=== PATIENT | male | born 1935 | race Caucasian/White ===

== ENCOUNTER 2021-11-10 17:30 | Inpatient (IN) | payer MEDICARE, SELFPAY ==
[2021-11-10 17:42] VITALS: BP 107/75; PULSE 79; RESP 26; TEMP 36.4; O2SAT 90; BMI 24.7
[2021-11-10 18:00] LABS: Bedside Glucose 311 mg/dL (70-110)
--- NOTE | 2021-11-10 19:04 | HP.PCM_ITS ---
HPI - General General Date of Admission: 11/10/21 HPI Narrative MOLINA CHAVEZ, is a 86 Male who presents with followin10/13/2021 +covid19, unvaccinated, no monoclonal antibodies. 10/30/2021 Progressive shortness of breath, weakness, lethargy, sleepy. 10/30/2021 Admit to [facility]. CTA chest negative pulmonary embolism, showed multifocal pneumonia. Duoneb Q6h, Oxygen 7 liters per nasal cannula for acute respiratory failure with hypoxia. Lovenox 40mg Q24H for DVT prophylaxis. Zosyn/Vancomycin IV for sepsis, pneumonia. Swallowing evaluation, concern for aspiration. 11/09/2021 Feeling okay, no shortness of breath, no nausea/vomiting. Famotidine 20mg bid for gastric ulcer prophylaxis. Iron 325mg bid for iron deficiency anemia. Medrol 40mg iv q6. Lantus, Lispro for steroid induced diabetes mellitus. Haldol, Xanax for agitation, . 11/09/2021 Chest X-ray showed bibasilar infiltrates or atelectasis, small left pleural effusion. Cardiology recommended no further workup for bradycardia. Wean oxygen as tolerated. 11/10/2021 Admit to TCU with debility, here for rehabilitation, strengthening, prior to discharge home with family. Prognosis guarded. [facility] Medical History (Updated 11/10/21 @ 19:[address] Milton Weiner MD) Acute respiratory failure with hypoxia Alzheimer disease Bradycardia COVID-19 Debility Diabetes mellitus Gastroesophageal reflux disease Hypertension Iron deficiency anemia Pneumonia Home Medications acetaminophen 650 mg PO Q4H PRN 11/10/21 [History Last Taken Unknown] alprazolam 0.25 mg PO Q6H PRN PRN 11/10/21 [History Last Taken Unknown] cholecalciferol (vitamin D3) [Vitamin D3] 50 mcg PO DAILY 11/10/21 [History Last Taken Unknown] enoxaparin 40 mg SUBCUT DAILY 11/10/21 [History Last Taken Unknown] famotidine 20 mg PO BID 11/10/21 [History Last Taken Unknown] ferrous sulfate 325 mg PO BID 11/10/21 [History Last Taken Unknown] insulin glargine 20 unit SUBCUT DAILY 11/10/21 [History Last Taken Unknown] insulin lispro See Protocol SUBCUT TID 11/10/21 [History Last Taken Unknown] ipratropium-albuterol 3 ml INHALATION Q2H PRN 11/10/21 [History Last Taken Unknown] lisinopril 10 mg PO DAILY 11/10/21 [History Last Taken Unknown] nystatin 5 ml PO Q6H 11/10/21 [History Last Taken Unknown] prednisone See Taper PO DAILY 11/10/21 [History Last Taken Unknown] urea [Urea 40] 1 applic TOPICAL TID 11/10/21 [History Last Taken Unknown] zinc sulfate-vitamin C [Vitamin C Plus Zinc] 1 tab PO DAILY 11/10/21 [History Last Taken Unknown] Allergy/AdvReac Type Severity Reaction Status Date / Time ciprofloxacin Allergy Hives Verified 11/10/21 18:05 Social History (Updated 11/10/21 @ 19:[address] Milton Weiner MD) household members: family housing: house Smoking Status: Never smoker alcohol intake: never substance use type: does not use ROS Constitutional Constitutional: Denies chills, fever(s) or weight gain ENT HEENT: Denies headache(s), nasal congestion or nasal discharge Cardiovascular Cardiovascular: Denies chest pain or palpitations Respiratory/Chest Respiratory/Chest: Denies cough, excessive phlegm production or shortness of breath with exertion Gastrointestinal Gastrointestinal: Denies abdominal pain, nausea or vomiting Genitourinary Genitourinary: Denies dysuria Musculoskeletal Musculoskeletal: Denies joint pain or joint swelling Integumentary Integumentary: Denies rash or wounds Neurologic Neurologic: Denies focal weakness, numbness or tingling Psychiatric Psychiatric: Denies anxiety, auditory hallucinations, depression, homicidal ideation or suicidal ideation Vital Signs Vital Signs Vital Signs: 11/10/21 17:42 Temperature 97.5 F L Temperature Source Temporal Pulse Rate 79 Respiratory Rate 26 H Blood Pressure 107/75 Blood Pressure Mean 85 Blood Pressure Source Monitor Blood Pressure Position Semi-Fowlers Blood Pressure Location Right Arm Pulse Ox 90 Oxygen Delivery Method Non-Rebreather Oxygen Flow Rate (L/min) 15 Weight Weight: 82.781 kg Body Mass Index (BMI) 24.7 Physical Exam Const alert and oriented x3 General Appearance: cooperative HEENT normocephalic Eyes PERRL and EOMs intact bilaterally Neck supple, no JVD and no carotid bruits Resp normal respiratory effort and normal air movement Auscultation: wheezes and diminished lung sounds Cardio regular rate and regular rhythm GI normal to inspection, nondistended, normoactive bowel sounds, non-tender and non-distended Extremity normal capillary refill General Extremity: Negative for edema Skin no rashes or lesions noted General Skin Exam: no breakdown Psych affect normal Appearance: appropriate Results Lab / Micro Data Labs: Laboratory Results - last 24 hr 11/10/21 17:53: POC Glucose 311 H Assessment & Plan Assessment/Plan (1) Debility: (2) COVID-19: (3) Acute respiratory failure with hypoxia: (4) Pneumonia: (5) Bradycardia: (6) Gastroesophageal reflux disease: (7) Iron deficiency anemia: (8) Diabetes mellitus: (9) Hypertension: (10) Alzheimer disease: PLAN: 86 year old male with below past medical history hospitalized for acute respiratory failure with hypoxia secondary to covid19 pneumonia, complic ated by dysphagia, aspiration, bradycardia, admitted to TCU with debility, here for rehabilitation, strengthening, prior to discharge home with family. * Debility - PT/OT. * Cognition - ST. * Pain - Tylenol 1000mg q6h prn pain (1-10). * Bowel - Miralax 17gm daily, Senna/colace 1 tablet bid, Dulcolax 10mg daily prn. * Adult immunization - Administer prevnar 13, pneumovax 23, fluzone, covid19 as appropriate. * DVT prophylaxis - Lovenox 40mg sc daily. * Anxiety - Xanax 0.25mg q6h prn, stable chronic truck terminal manager use, GDR not recommended. * GERD - Famotidine 20mg bid. * Iron deficiency anemia - Iron 325mg bid. * Diabetes Mellitus II - Lantus 20 units daily, monitor blood sugar. * Shortness of breath - Duoneb 3ml Q2H prn, Prednisone taper, wean oxygen as tolerated. * Hypertension - Lisinopril 10mg daily. * Thrush - Nystatin 500,000 q6h thru 11/13/2021. * Zinc deficiency - Zinc 50mg daily.
[2021-11-10 20:54] VITALS: PULSE 91; RESP 24; O2SAT 91
[2021-11-10 21:40] VITALS: PULSE 97; RESP 36
[2021-11-10] MEDS: Ipratropium/Albuterol Sulfate 3 ML AMPUL.NEB INHALATION (21:40)
[2021-11-10 22:35] LABS: Allen Test Positive; Base Excess -2 mmol/L (-2 to +2); Bicarbonate 21.3 mmol/L (22-26); Blood Gas Specimen Type ART; O2 Delivery Device NRB; PO2 48 mmHG (75-100); SITE L Radial; SO2 87 % (95-99); Total Carbon Dioxide 22 mmol/L; pCO2 29.1 mmHg (35-45); pH 7.47 (7.35-7.45)
[2021-11-10 22:40] LABS: Bedside Glucose 229 mg/dL (70-110)
--- NOTE | 2021-11-10 23:13 | NURSING ---
Pt resp status diminishing. Called resp, placed on non rebreather. Unable to get pulse ox reading. Contacted Dr. Weiner. Stated to talk with family and see if they wanted comfort care and hospice or to send to ER. Binh called back and stated that family discussed it and wanted him to go to ER to see if they could give further treatment. Pt taken to ER at approx 11pm. Call make to binh to inform her that he had been taken down. Stated she was not coming in, but would tall them later for update.
--- NOTE | 2021-11-11 10:55 | PCM.DC.SUM ---
Providers Date of Admission: 11/10/21 Reason For Visit: ACUTE RESPIRATORY FAILURE Diagnosis Discharge Diagnosis (1) Debility: Status: Acute Code(s): R53.81 - Other malaise (2) COVID-19: Status: Acute Code(s): U07.1 - COVID-19 (3) Acute respiratory failure with hypoxia: Status: Acute Code(s): J96.01 - Acute respiratory failure with hypoxia (4) Pneumonia: Status: Acute Code(s): J18.9 - Pneumonia, unspecified organism (5) Bradycardia: Status: Acute Code(s): R00.1 - Bradycardia, unspecified (6) Gastroesophageal reflux disease: Status: Acute Code(s): K21.9 - Gastro-esophageal reflux disease without esophagitis (7) Iron deficiency anemia: Status: Acute Code(s): D50.9 - Iron deficiency anemia, unspecified (8) Diabetes mellitus: Status: Acute Code(s): E11.9 - Type 2 diabetes mellitus without complications (9) Hypertension: Status: Chronic Code(s): I10 - Essential (primary) hypertension (10) Alzheimer disease: Status: Acute Code(s): G30.9 - Alzheimer's disease, unspecified; F02.80 - Dementia in other diseases classified elsewhere without behavioral disturbance Medications at Discharge Home Medications acetaminophen 650 mg PO Q4H PRN 11/10/21 alprazolam 0.25 mg PO Q6H PRN PRN 11/10/21 cholecalciferol (vitamin D3) [Vitamin D3] 50 mcg PO DAILY 11/10/21 enoxaparin 40 mg SUBCUT DAILY 11/10/21 famotidine 20 mg PO BID 11/10/21 ferrous sulfate 325 mg PO BID 11/10/21 insulin glargine 20 unit SUBCUT DAILY 11/10/21 insulin lispro See Protocol SUBCUT TID 11/10/21 ipratropium-albuterol 3 ml INHALATION Q2H PRN 11/10/21 lisinopril 10 mg PO DAILY 11/10/21 nystatin 5 ml PO Q6H 11/10/21 prednisone See Taper PO DAILY 11/10/21 urea [Urea 40] 1 applic TOPICAL TID 11/10/21 zinc sulfate-vitamin C [Vitamin C Plus Zinc] 1 tab PO DAILY 11/10/21 Hospital Course Operations None Procedures None Summary of Care Provided Minutes Spent on Discharge: 30 Hospital Course: 86 year old male with below past medical history hospitalized for acute respiratory failure with hypoxia secondary to covid19 pneumonia, complicated by dysphagia, aspiration, bradycardia, admitted to TCU with debility, here for rehabilitation, strengthening, prior to discharge home with family. Resident arrived with nonbreather, pulsox 87% on ABG. 11/10/2021 Respiratory status worsened, family given options of hospice or transfer to ER, family chose ER. 11/10/2021 Discharge to [facility] ER for evaluation of acute respiratory failure with hypoxia secondary to covid19 in unvaccinated 86 year old with multiple comorbidities. Physical Exam Const alert and oriented x3 General Appearance: cooperative HEENT normocephalic Eyes PERRL and EOMs intact bilaterally Neck supple, no JVD and no carotid bruits Resp normal respiratory effort, normal air movement and clear to auscultation bilaterally Cardio regular rate and regular rhythm GI normal to inspection, nondistended, normoactive bowel sounds, non-tender and non-distended Extremity normal capillary refill General Extremity: Negative for edema Skin no rashes or lesions noted General Skin Exam: no breakdown Psych affect normal Appearance: appropriate Weight / BMI Weight Weight: 82.781 kg Body Mass Index (BMI) 24.7 ABG / Lab / Microbiology Data Laboratory: Laboratory Results - last 24 hr 11/10/21 17:53: POC Glucose 311 H 11/10/21 21:22: POC Glucose 229 H ABG: ABG 11/10/21 22:31 Specimen Type ART Sample Site L Radial pH 7.47 H Bicarbonate Actual 21.3 L Total CO2 22 Base Excess -2 O2 Saturation 87 L ABG pCO2 29.1 L ABG pO2 48 L Boyd Test Positive O2 Delivery Device NRB Liter Flow 15.0 D/C Instructions Discharge Diet: No restrictions Discharge Activity: Return to Normal Activity Weight Bearing Status: Weight bearing as tolerated Call your doctor if you observe: Fever of 101 or Higher, Inability to urinate, Inability to have a bowel movement, Shortness of breath, Dizziness, Fainting spells, Swelling in the ankles, Chest pain and Uncontrolled pain Additional Instructions: 11/10/2021 Discharge to [facility] ER for evaluation of acute respiratory failure with hypoxia secondary to covid19 in unvaccinated 86 year old with multiple comorbidities Please Follow Up With: Dr. Shankar Blair, PCP Meaningful Use Info Meaningful Use Diagnoses (Choose all that apply): None applicable Discharge Plan Admission Admit Date/Time: 11/10/21 17:30 Primary Reason for Your Visit: Debility. Attending Provider: Milton Weiner Chi Instructions Additional Instructions / Restrictions: 11/10/2021 Discharge to [facility] ER for evaluation of acute respiratory failure with hypoxia secondary to covid19 in unvaccinated 86 year old with multiple comorbidities Discharge Orders/Prescriptions Prescriptions: No Action famotidine 20 mg Tablet 20 mg PO BID RF: 0 ferrous sulfate 325 mg (65 mg iron) Tablet 325 mg PO BID RF: 0 enoxaparin 40 mg/0.4 mL Syringe 40 mg SUBCUT DAILY RF: 0 insulin lispro 100 unit/mL Insulin Pen See Protocol unit SUBCUT TID RF: 0 insulin glargine 100 unit/mL (3 mL) Insulin Pen 20 unit SUBCUT DAILY RF: 0 nystatin 100,000 unit/mL Suspension 5 ml PO Q6H RF: 0 acetaminophen 325 mg Tablet 650 mg PO Q4H PRN (Reason: Pain (Scale Score 1-3)) RF: 0 prednisone 10 mg Tablet See Taper mg PO DAILY RF: 0 ipratropium-albuterol 0.5 mg-3 mg(2.5 mg base)/3 mL Solution For Nebulization 3 ml INHALATION Q2H PRN (Reason: SOB) RF: 0 Vitamin C Plus Zinc 200-100 mg Tablet 1 tab PO DAILY RF: 0 alprazolam 0.25 mg Tablet 0.25 mg PO Q6H PRN PRN (Reason: Anxiety) RF: 0 lisinopril 10 mg Tablet 10 mg PO DAILY RF: 0 urea [Urea 40] 40 % Lotion 1 applic TOPICAL TID RF: 0 cholecalciferol (vitamin D3) [Vitamin D3] 50 mcg (2,000 unit) Tablet 50 mcg PO DAILY RF: 0 Disposition Disposition (needs filled in before D/C Order can be placed): Acute Care Hospital [facility]
== END 2021-11-10 23:00 | disposition short-term general hospital (02) | DRG 189 ==
PROVIDERS: Admitting Provider Family Medicine Geriatric Medicine; Visit Provider Family Medicine Geriatric Medicine
DX: J96.01 Acute respiratory failure with hypoxia (principal); R13.10 Dysphagia, unspecified; K21.9 Gastro-esophageal reflux disease without esophagitis; F02.80 Dementia in other diseases classified elsewhere, unspecified severity, without behavioral disturbance, psychotic disturbance, mood disturbance, and anxiety; G30.9 Alzheimer's disease, unspecified; I10 Essential (primary) hypertension; E11.9 Type 2 diabetes mellitus without complications; D50.9 Iron deficiency anemia, unspecified; U09.9 Post COVID-19 condition, unspecified; F41.9 Anxiety disorder, unspecified; B37.9 Candidiasis, unspecified; Z87.01 Personal history of pneumonia (recurrent); Z28.3 Underimmunization status
CPT/HCPCS: 36600; 82803; 82962; 94640

== ENCOUNTER 2021-11-10 23:04 | Emergency (ER) | payer MEDICARE, SELFPAY ==
--- NOTE | 2021-11-10 00:30 | RAD_ITS ---
EXAM: XR CHEST, 1 VIEW CLINICAL INDICATION: COVID 19 TECHNIQUE: Frontal view of the chest. This report was created using [employer]ner[employer] report generation technology. COMPARISON: None. FINDINGS: LUNGS AND PLEURAL SPACES: Heterogeneous airspace opacities involving the right mid to lower lung zones. Linear opacities at the left lower lung. Evidence of emphysema. No pneumothorax. No effusion. HEART: No cardiomegaly. MEDIASTINUM: Central airways and mediastinal contour are unremarkable. No hilar enlargement. Trachea is unremarkable. BONES/JOINTS: Degenerative changes of the spine and supraclavicular joints. SOFT TISSUES: Unremarkable. VASCULATURE: Atherosclerotic calcifications of the mildly tortuous thoracic aorta. RAD/Chest 1 View (Portable) IMPRESSION: Right-sided pneumonia suspected involving the right mid to lower lower lung zones. Electronically Signed: Livan Sanches MD at 1:12 EST Tel , Service support ,
[2021-11-10 23:05] VITALS: BP 108/66; BP 117/55; PULSE 76; PULSE 77; RESP 26; RESP 30; TEMP 36.5; O2SAT 85; O2SAT 96; BMI 26.8
[2021-11-10 23:17] VITALS: O2SAT 97
--- NOTE | 2021-11-10 23:30 | EKG12_ITS ---
Test Reason : DYSRHYTHMIA Blood Pressure : / mmHG Vent. Rate : 076 BPM Atrial Rate : 076 BPM P-R Int : 208 ms QRS Dur : 114 ms QT Int : 420 ms P-R-T Axes : 000 015 172 degrees QTc Int : 472 ms Normal sinus rhythm Inferior infarct , age undetermined ST & T wave abnormality, consider lateral ischemia Abnormal ECG Confirmed by OLINDA ALTMAN, TRA ([id number]), production editor GAYE AVELAR ([id number]) on 11/15/2021 9:35:08 AM Referred By: Confirmed By:TRA PRAKASH MD
--- NOTE | 2021-11-10 23:33 | EDS_ITS ---
HPI History of Present Illness Chief Complaint: Shortness of Breath Informant: patient and SNF Narrative Narrative: 86-year-old male from [facility] was admitted at [facility] for COVID-19 was transferred to [facility] TCU for rehabilitation. He was noted to be hypoxemic. He is a DNR Comfort Care arrest with no intubation does not want BiPAP therapy. While in TCU he was placed on a nonrebreather and ABG was performed which showed a PaO2 in the 40s. Patient states he feels like he is breathing okay. Currently denies any pain. [facility] Medical History Acute respiratory failure with hypoxia Alzheimer disease Bradycardia COVID-19 Debility Diabetes mellitus Gastroesophageal reflux disease Hypertension Iron deficiency anemia Pneumonia Home Medications acetaminophen 650 mg PO Q4H PRN 11/10/21 [History Last Taken Unknown] alprazolam 0.25 mg PO Q6H PRN PRN 11/10/21 [History Last Taken Unknown] cholecalciferol (vitamin D3) [Vitamin D3] 50 mcg PO DAILY 11/10/21 [History Last Taken Unknown] enoxaparin 40 mg SUBCUT DAILY 11/10/21 [History Last Taken Unknown] famotidine 20 mg PO BID 11/10/21 [History Last Taken Unknown] ferrous sulfate 325 mg PO BID 11/10/21 [History Last Taken Unknown] insulin glargine 20 unit SUBCUT DAILY 11/10/21 [History Last Taken Unknown] insulin lispro See Protocol SUBCUT TID 11/10/21 [History Last Taken Unknown] ipratropium-albuterol 3 ml INHALATION Q2H PRN 11/10/21 [History Last Taken Unknown] lisinopril 10 mg PO DAILY 11/10/21 [History Last Taken Unknown] nystatin 5 ml PO Q6H 11/10/21 [History Last Taken Unknown] prednisone See Taper PO DAILY 11/10/21 [History Last Taken Unknown] urea [Urea 40] 1 applic TOPICAL TID 11/10/21 [History Last Taken Unknown] zinc sulfate-vitamin C [Vitamin C Plus Zinc] 1 tab PO DAILY 11/10/21 [History Last Taken Unknown] Allergy/AdvReac Type Severity Reaction Status Date / Time ciprofloxacin Allergy Hives Verified 11/10/21 23:16 Social History household members: family housing: house Smoking Status: Never smoker alcohol intake: never substance use type: does not use ROS ROS ED Constitutional Constitutional ED: Denies chills, fever(s) or weight loss Eyes Eyes: Denies change in vision or diplopia ENT ENT ED: Denies ear pain, rhinorrhea or sore throat Cardiovascular Cardiovascular: Denies chest pain, orthopnea, palpitations or racing heartbeat Respiratory/Chest Respiratory/Chest: Denies cough, dyspnea or orthopnea Gastrointestinal Gastrointestinal: Denies abdominal pain, diarrhea, nausea or vomiting Genitourinary Genitourinary ED: Denies dysuria, hematuria or urinary frequency Musculoskeletal Musculoskeletal: Denies arthralgias or myalgias Integumentary Denies abscess or rash Neurologic Neurologic: Denies headache(s) or weakness Psychiatric Psychiatric: Denies anxiety, depression, suicidal ideation or suicidal thoughts Endocrine Endocrinology: Denies polydipsia, polyphagia or polyuria Allergic/Immunologic Allergic/Immunologic ED: Denies mouth swelling, tongue swelling or urticaria EXAM Physical Exam Const Vital Signs: 11/10/21 23:05 11/10/21 23:17 11/11/21 00:22 Temperature 97.7 F L Temperature Source Temporal Pulse Rate 76 82 Respiratory Rate 26 H 39 H Respiratory Effort Normal Respiratory Pattern Tachypnea Blood Pressure 108/66 103/56 L Blood Pressure Mean 80 71 Pulse Ox 96 93 Oxygen Delivery Method Non-Rebreather Non-Rebreather High Flow Oxygen Flow Rate (L/min) 15 15 15 11/11/21 01:00 11/11/21 03:17 11/11/21 03:23 Temperature Temperature Source Pulse Rate 73 72 Respiratory Rate 16 25 H Respiratory Effort Respiratory Pattern Blood Pressure 92/55 L 115/73 Blood Pressure Mean 67 87 Pulse Ox 94 99 Oxygen Delivery Method High Flow High Flow Oxygen Flow Rate (L/min) 15 10 Positive well nourished and well developed General Appearance ED: well developed HEENT Reports normocephalic, head/scalp atraumatic, TM's clear and moist mucous membranes Negative for trauma Tympanic Membrane ED: Yes TM's clear Eyes PERRL and EOMs intact bilaterally Neck no lymphadenopathy, supple and no JVD Resp normal respiratory effort and clear to auscultation bilaterally Cardio no murmurs Rhythm: abnormal rhythm ectopic beats GI normal to inspection, nondistended, normoactive bowel sounds and non-tender Palpation: soft Back/Spine no CVA tenderness and normal ROM Extremity normal to inspection General Extremety ED: Negative for edema General Extremity: Negative for edema Neuro oriented x3 and CN's II-XII intact bilaterally Sensorium / Orientation: alert Motor Exam: strength 5/5 throughout Psych mental status grossly normal Mood & Affect: Negative for depressed or tearful Skin no rashes or lesions noted and no wounds MDM MDM MDM Narrative Medical decision making narrative: Patient was very difficult to get a pulse oximeter reading on. Eventually we are able to achieve good waveform on the ear. Nonrebreather was able to reduce down to a high flow nasal cannula currently at 12 L. With this he has a good waveform and is 99%. Patient was extremely difficult to obtain blood and IV on. The IV that he had was no longer functional. Therefore was discontinued. After multiple operators attempted including ultrasound guided IV a 20-gauge peripheral line was established. My interpretation of the chest x-ray is no acute process. Patient has evidence of some dehydration BUN of 41 with a creatinine of 1.14. This is most likely why he was so difficult to get an IV on. Given that he was just hospitalized with COVID-19 with respiratory issues the mild dehydration was most likely intentional. Patient was taken down for CTA. Shortly after coming back from radiology the IV was noted to be not working. The CTA was negative for pulmonary embolism. We are continuing to wean down his oxygen requirements. Patient at this point will be discharged back to the TCU. Given the difficulty with venous access it may be advisable to place a PICC line. Lab Data Attestation: I reviewed the patient's lab results. Labs: Laboratory Results - last 24 hr 11/11/21 11/11/21 00:19 00:19 WBC 9.8 RBC 4.75 Hgb 13.1 Hct 41.9 MCV 88.2 MCH 27.6 MCHC 31.3 L RDW Std Deviation 48.1 H RDW Coeff of Jess 15.5 H Plt Count 174 MPV 12.3 H Immature Gran % (Auto) 0.500 Neut % (Auto) 86.0 H Lymph % (Auto) 7.8 L [place] % (Auto) 5.5 Eos % (Auto) 0.1 Baso % (Auto) 0.1 Absolute Neuts (auto) 8.4 H Absolute Lymphs (auto) 0.76 L Nucleated RBC % 0 Sodium 143 Potassium 4.1 Chloride 112 H Carbon Dioxide 24.0 Anion Gap 7 BUN 41 H Creatinine 1.14 Estim Creat Clear Calc 52.00 Est GFR (MDRD) Af Amer 78 Est GFR (MDRD) Non-Af 65 BUN/Creatinine Ratio 36.0 H Glucose 196 H Calcium 8.3 L Total Bilirubin 0.60 AST 13 L ALT 29 Alkaline Phosphatase 50 Total Protein 5.5 L Albumin 1.9 L Globulin 3.6 Albumin/Globulin Ratio 0.5 L Radiography Diagnostic Testing: Clinical Impression(s) from Imaging Studies Chest X-Ray 11/10/21 00:30 IMPRESSION: Right-sided pneumonia suspected involving the right mid to lower lower lung zones. Electronically Signed: Livan Sanches MD at 1:12 EST Tel , Service support , Chest CTA 11/11/21 02:50 IMPRESSION: No demonstrated pulmonary embolism or arterial dissection. Streaky bilateral lung base opacities which likely represents atelectasis. Infectious inflammatory process not excluded. Bilateral renal cystic hypodensities likely cysts however incompletely visualized. Consider follow-up nonemergent renal ultrasound for further evaluation. Electronically Signed: Giacomo Navas MD at 3:59 EST Tel , Service support , EKG Initial EKG: Attestation: I personally reviewed and interpreted this EKG as follows: Comments: Sinus rhythm with frequent PACs. Ventricular rate of 76 bpm. Discharge Plan Triage Chief Complaint: Shortness of Breath ED Provider: Low Marroquin Dx/Rx/DC Orders Clinical Impression: Alzheimer disease, Acute respiratory failure with hypoxia, COVID-19 Prescriptions: No Action famotidine 20 mg Tablet 20 mg PO BID RF: 0 ferrous sulfate 325 mg (65 mg iron) Tablet 325 mg PO BID RF: 0 enoxaparin 40 mg/0.4 mL Syringe 40 mg SUBCUT DAILY RF: 0 insulin lispro 100 unit/mL Insulin Pen See Protocol unit SUBCUT TID RF: 0 insulin glargine 100 unit/mL (3 mL) Insulin Pen 20 unit SUBCUT DAILY RF: 0 nystatin 100,000 unit/mL Suspension 5 ml PO Q6H RF: 0 acetaminophen 325 mg Tablet 650 mg PO Q4H PRN (Reason: Pain (Scale Score 1-3)) RF: 0 prednisone 10 mg Tablet See Taper mg PO DAILY RF: 0 ipratropium-albuterol 0.5 mg-3 mg(2.5 mg base)/3 mL Solution For Nebulization 3 ml INHALATION Q2H PRN (Reason: SOB) RF: 0 Vitamin C Plus Zinc 200-100 mg Tablet 1 tab PO DAILY RF: 0 alprazolam 0.25 mg Tablet 0.25 mg PO Q6H PRN PRN (Reason: Anxiety) RF: 0 lisinopril 10 mg Tablet 10 mg PO DAILY RF: 0 urea [Urea 40] 40 % Lotion 1 applic TOPICAL TID RF: 0 cholecalciferol (vitamin D3) [Vitamin D3] 50 mcg (2,000 unit) Tablet 50 mcg PO DAILY RF: 0 Primary Care Provider: Milton Weiner Chi Referrals: Milton Weiner Chi, MD [Primary Care Provider] - Disposition Disposition: [facility]sp Facility Discharge Location: [facility] Transitional Care Unit
[2021-11-11] VITALS (9 sets, daily range): BP systolic 92–121; BP diastolic 55–73; PULSE 64–82; RESP 16–39; O2SAT 93–100
[2021-11-11 00:25] LABS: Absolute Lymphocyte Count 0.76 X10^3/uL (0.83-4.51); Absolute Neutrophil Count 8.4 X10^3/uL (2.0-7.7); Basophil# 0.01 X10^3/uL; Basophil% 0.1 % (0-1); Eosinophil# 0.01 X10^3/uL; Eosinophils% 0.1 % (0-5); Hematocrit 41.9 % (40-54); Hemoglobin 13.1 g/dL (13.0-16.5); Lymphocyte # 0.76 X10^3/ul (0.83-4.51); Lymphocyte % 7.8 % (19-41); Mean Corp Hgb Conc 31.3 g/dL (32-36); Mean Corpuscular Hgb 27.6 pg (27.0-32.0); Mean Corpuscular Volume 88.2 fL (80-94); Mean Platelet Vol. 12.3 fl (6.2-12.0); Monocyte# 0.54 X10^3/uL; Monocyte% 5.5 % (0-10); NRBC Flagged by Analyzer 0 % (0-5); Neutrophil # 8.41 X10^3/uL (2.7-7.7); Platelet Count 174 K/mm3 (150-450); RBC Distribution Width CV 15.5 % (11.6-14.6); RBC Distribution Width SD 48.1 fl (35.1-43.9); Red Blood Count 4.75 M/mm3 (4.6-6.2); White Blood Count 9.8 K/mm3 (4.4-11.0)
[2021-11-11 00:55] LABS: ALB/GLOB Ratio 0.5 RATIO (0.9-2.4); AST(SGOT) 13 U/L (15-37); Alanine Aminotransfer ALT/SGPT 29 U/L (16-61); Albumin, Serum 1.9 g/dL (3.2-5.0); Alkaline Phosphatase 50 U/L (45-117); Anion Gap 7 (5-15); BUN 41 mg/dL (7-18); Calcium,Total 8.3 mg/dL (8.5-10.1); Chloride 112 mmol/L (98-107); Creatinine, Serum 1.14 mg/dL (0.70-1.30); EST Glomerular Filtration Rate 65 mL/min (>60); Est Glom Filt Rate - Afr Amer 78 mL/min (>60); Globulin 3.6 g/dL (2.2-4.2); Glucose 196 mg/dL (74-106); Potassium 4.1 mmol/L (3.5-5.1); Protein, Total 5.5 g/dL (6.4-8.2); Sodium Level 143 mmol/L (136-145)
--- NOTE | 2021-11-11 02:50 | CT_ITS ---
STUDY: CTA CHEST REASON FOR EXAM: Male, 86 years old. pulmonary embolism RADIATION DOSAGE (If Supplied By Facility): CTDIvol = ( 14.86 ) mGy, DLP = ( 507.78 ) mGycm TECHNIQUE: The examination was performed with the intravenous administration of IV 100mL [id number]-370. Post-processing of the angiographic images was performed, with multiplanar reformation and 3D reconstruction. Individualized dose optimization techniques were used for this CT. COMPARISON: None. FINDINGS: Normal enhancement of the main pulmonary artery and right and left pulmonary arteries. Normal enhancement of the bilateral peripheral pulmonary arteries. There is no demonstrated pulmonary embolism. Normal thoracic aorta and visualized great vessels. There is no demonstrated aortic dissection. Normal heart and pericardium. Normal mediastinum. Normal hilar regions. Normal visualized trachea and bronchi. The lungs demonstrate streaky bilateral lower lobe airspace opacities. Normal pleura. Normal chest wall structures. Normal osseous structures. There is a large hiatal hernia. There are bilateral small renal cystic hypodensities likely cysts although are not well visualized due to quantum mottle artifact. CT/CTA Chest W/WO Contrast IMPRESSION: No demonstrated pulmonary embolism or arterial dissection. Streaky bilateral lung base opacities which likely represents atelectasis. Infectious inflammatory process not excluded. Bilateral renal cystic hypodensities likely cysts however incompletely visualized. Consider follow-up nonemergent renal ultrasound for further evaluation. Electronically Signed: Giacomo Navas MD at 3:59 EST Tel , Service support ,
--- NOTE | 2021-11-11 04:08 | ED.RN ---
report called to anushka on tcu.
--- NOTE | 2021-11-11 08:21 | ED.RN ---
spoke with Camille on TCU. Pt will go back to TCU and Camille will facilitate pre cert today. Spoke with Starr MUNOZ and gave report. Pt ok to go to the floor
== END 2021-11-11 08:23 ==
PROVIDERS: Emergency Provider Emergency Medicine; PCP Family Medicine Geriatric Medicine
DX: U07.1 COVID-19 (principal); J96.01 Acute respiratory failure with hypoxia; G30.9 Alzheimer's disease, unspecified; F02.80 Dementia in other diseases classified elsewhere, unspecified severity, without behavioral disturbance, psychotic disturbance, mood disturbance, and anxiety; I10 Essential (primary) hypertension; E11.9 Type 2 diabetes mellitus without complications; D50.9 Iron deficiency anemia, unspecified; Z66 Do not resuscitate; Z79.4 Long term (current) use of insulin; Z79.899 Other long term (current) drug therapy
CPT/HCPCS: 36415; 71045; 71275; 80053; 85025; 93005; 99284; J7030; Q9967; A4216

== ENCOUNTER 2021-11-11 09:12 | Inpatient (IN) | payer MEDICARE, SELFPAY ==
[2021-11-11 09:24] VITALS: BP 111/63; PULSE 68; RESP 20; TEMP 36.3; O2SAT 92; BMI 24.7
[2021-11-11 10:24] VITALS: PULSE 78; RESP 24; O2SAT 90
--- NOTE | 2021-11-11 11:01 | PCM.HP.STD ---
HPI - General General Date of Admission: 11/11/21 HPI Narrative MOLINA CHAVEZ, is a 86 Male who presents with followin10/13/2021 +covid19, unvaccinated, no monoclonal antibodies. 10/30/2021 Progressive shortness of breath, weakness, lethargy, sleepy. 10/30/2021 Admit to [facility]. CTA chest negative pulmonary embolism, showed multifocal pneumonia. Duoneb Q6h, Oxygen 7 liters per nasal cannula for acute respiratory failure with hypoxia. Lovenox 40mg Q24H for DVT prophylaxis. Zosyn/Vancomycin IV for sepsis, pneumonia. Swallowing evaluation, concern for aspiration. 11/09/2021 Feeling okay, no shortness of breath, no nausea/vomiting. Famotidine 20mg bid for gastric ulcer prophylaxis. Iron 325mg bid for iron deficiency anemia. Medrol 40mg iv q6. Lantus, Lispro for steroid induced diabetes mellitus. Haldol, Xanax for agitation, . 11/09/2021 Chest X-ray showed bibasilar infiltrates or atelectasis, small left pleural effusion. Cardiology recommended no further workup for bradycardia. Wean oxygen as tolerated. 11/10/2021 Admit to TCU with debility, here for rehabilitation, strengthening, prior to discharge home with family. Prognosis guarded. 11/10/2021 Resident arrived on nonrebreather, unable to obtain pulsox, ABG showed respiratory alkalosis with partial compensation, pulsox 87%. 11/10/2021 Resident respiratory status worsened, family offered hospice or transfer to ER, family opted for transfer to ER. 11/11/2021 At [facility] ER, resident felt he was breathing okay. CTA chest negative pulmonary embolism, his oxygen was weaned, and able to come off nonrebreather. Family declined intubation, BiPAP therapy. 11/11/2021 Admit to TCU with debility, here for rehabilitation, strengthening, prior to discharge home with family. [facility] Medical History Acute respiratory failure with hypoxia Alzheimer disease Bradycardia COVID-19 Debility Diabetes mellitus Gastroesophageal reflux disease Hypertension Iron deficiency anemia Pneumonia Home Medications acetaminophen 650 mg PO Q4H PRN 11/10/21 [History Last Taken Unknown] alprazolam 0.25 mg PO Q6H PRN PRN 11/10/21 [History Last Taken Unknown] cholecalciferol (vitamin D3) [Vitamin D3] 50 mcg PO DAILY 11/10/21 [History Last Taken Unknown] enoxaparin 40 mg SUBCUT DAILY 11/10/21 [History Last Taken Unknown] famotidine 20 mg PO BID 11/10/21 [History Last Taken Unknown] ferrous sulfate 325 mg PO BID 11/10/21 [History Last Taken Unknown] insulin glargine 20 unit SUBCUT DAILY 11/10/21 [History Last Taken Unknown] insulin lispro See Protocol SUBCUT TID 11/10/21 [History Last Taken Unknown] ipratropium-albuterol 3 ml INHALATION Q2H PRN 11/10/21 [History Last Taken Unknown] lisinopril 10 mg PO DAILY 11/10/21 [History Last Taken Unknown] nystatin 5 ml PO Q6H 11/10/21 [History Last Taken Unknown] prednisone See Taper PO DAILY 11/10/21 [History Last Taken Unknown] urea [Urea 40] 1 applic TOPICAL TID 11/10/21 [History Last Taken Unknown] zinc sulfate-vitamin C [Vitamin C Plus Zinc] 1 tab PO DAILY 11/10/21 [History Last Taken Unknown] Allergy/AdvReac Type Severity Reaction Status Date / Time ciprofloxacin Allergy Hives Verified 11/10/21 23:16 Social History household members: family housing: house Smoking Status: Never smoker alcohol intake: never substance use type: does not use Vital Signs Vital Signs Vital Signs: 11/11/21 09:24 Temperature 97.3 F L Temperature Source Temporal Pulse Rate 68 Respiratory Rate 20 H Blood Pressure 111/63 Blood Pressure Mean 79 Blood Pressure Source Monitor Blood Pressure Position Semi-Fowlers Blood Pressure Location Right Arm Pulse Ox 92 Oxygen Delivery Method High Flow Weight Weight: 82.781 kg Body Mass Index (BMI) 24.7 Assessment & Plan Assessment/Plan (1) Debility: (2) COVID-19: (3) Acute respiratory failure with hypoxia: (4) Pneumonia: (5) Bradycardia: (6) Gastroesophageal reflux disease: (7) Iron deficiency anemia: (8) Diabetes mellitus: (9) Hypertension: (10) Alzheimer disease: PLAN: 86 year old male with below past medical history hospitalized for acute respiratory failure with hypoxia secondary to covid19 pneumonia, complicated by dysphagia, aspiration, bradycardia, admitted to TCU with debility, here for rehabilitation, strengthening, prior to discharge home with family. Debility - PT/OT. Cognition - ST. Pain - Tylenol 1000mg q6h prn pain (1-10). Bowel - Miralax 17gm daily, Senna/colace 1 tablet bid, Dulcolax 10mg daily prn. Adult immunization - Administer prevnar 13, pneumovax 23, fluzone, covid19 as appropriate. DVT prophylaxis - Lovenox 40mg sc daily. Anxiety - Xanax 0.25mg q6h prn, stable chronic manager terminal use, GDR not recommended. GERD - Famotidine 20mg bid. Iron deficiency anemia - Iron 325mg bid. Diabetes Mellitus II - Lantus 20 units daily, monitor blood sugar. Shortness of breath - Duoneb 3ml Q2H prn, Prednisone taper, wean oxygen as tolerated. Hypertension - Lisinopril 10mg daily. Thrush - Nystatin 500,000 q6h thru 11/13/2021. Zinc deficiency - Zinc 50mg daily. End of life - Nursing staff to contact family to consider Inpatient hospice or home with hospice. Resident unlikely to survive complications of covid19. Resident not seen, no physical exam, or review of systems.
[2021-11-11 11:26] LABS: Bedside Glucose 155 mg/dL (70-110)
--- NOTE | 2021-11-11 11:32 | NURSING ---
Patient was tested on 10/13/21 with home test per niece and tested positive for Covid that date. Patient has been at [facility] in [place] since then and was removed from quarantine on 11/02. Admin aware and approved to admit.
--- NOTE | 2021-11-11 11:57 | NURSING ---
Hospice [facility] notified to evaluate pt for IPH . Dr Weiner spoke to francis Ennis agreed for hospice consult at this time
--- NOTE | 2021-11-11 12:15 | NURSING ---
pt dropping to 78-82% while resting in bed on 8L hi flow, NRB applied @ 15L, spo2 now @ 90-91%, Respiratory called for recommendation, Fahad said thats all I would do Will continue to monitor
--- NOTE | 2021-11-11 15:48 | PCM.DC.SUM ---
Providers Date of Admission: 11/11/21 Primary Care Physician: Milton Weiner MD Reason For Visit: ACUTE RESPIRATORY FAILURE Diagnosis Discharge Diagnosis (1) Debility: Status: Acute Code(s): R53.81 - Other malaise (2) COVID-19: Status: Acute Code(s): U07.1 - COVID-19 (3) Acute respiratory failure with hypoxia: Status: Acute Code(s): J96.01 - Acute respiratory failure with hypoxia (4) Pneumonia: Status: Acute Code(s): J18.9 - Pneumonia, unspecified organism (5) Bradycardia: Status: Acute Code(s): R00.1 - Bradycardia, unspecified (6) Gastroesophageal reflux disease: Status: Acute Code(s): K21.9 - Gastro-esophageal reflux disease without esophagitis (7) Iron deficiency anemia: Status: Acute Code(s): D50.9 - Iron deficiency anemia, unspecified (8) Diabetes mellitus: Status: Acute Code(s): E11.9 - Type 2 diabetes mellitus without complications (9) Hypertension: Status: Chronic Code(s): I10 - Essential (primary) hypertension (10) Alzheimer disease: Status: Acute Code(s): G30.9 - Alzheimer's disease, unspecified; F02.80 - Dementia in other diseases classified elsewhere without behavioral disturbance Hospital Course Operations None Procedures None Summary of Care Provided Minutes Spent on Discharge: 30 Hospital Course: 86 year old male with below past medical history hospitalized for acute respiratory failure with hypoxia secondary to covid19 pneumonia, complicated by dysphagia, aspiration, bradycardia, admitted to TCU with debility, here for rehabilitation, strengthening, prior to discharge home with family. 11/11/2021 Resident hypoxic despite high flow oxygen, resident turning blue. I spoke with MARSHA Ennis regarding resident status. She agreed to DNRCC, transfer to inpatient hospice unit, as resident is dying. 11/11/2021 Discharge to inpatient hospice unit for end of life care, resident short of breath, anxious, restless, and needs stabilization in inpatient hospice unit. Medical Records Data Medical Nutrition Assessment Dietitian: Malnutrition Criteria Met Start: 11/11/21 11:44 Freq: Status: Active Protocol: Document 11/11/21 11:44 SLA (Rec: 11/11/21 11:44 SLA [id number]) Nutrition Malnutrition Evidence of Malnutrition Exists Yes Malnutrition (severe): Acute Illness/Injury Evidenced By Suboptimal Energy Intake ( Severe),Weight Loss (Severe) Clinical Problem Biting/Chewing Difficulty Etiology swallowing - related to dysphagia Signs/Symptoms as evidenced by need for mech altered diet consistencies Status Active Problem Acute Disease or Injury Related Malnutrition Etiology related to covid/ resp failure and dysphagia making it difficult for pt to consume adequate nutrition to meet est nutritional needs Signs/Symptoms as evidenced by <75% po intake and ~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 Status Active Problem Recommendation Dietitian Recommendations/Changes Will continue diet as ordered, but will change magic cup to ensure pudding per res niece preference Will provide fortified foods at meals for increased nutrition if consumed May need to consider supplemental nutrition support if po intake fails to improve to prevent further decline in res nutritional status - if in accordance w/ res/family wishes - consult for rec prn Weight / BMI Weight Weight: 82.781 kg Body Mass Index (BMI) 24.7 ABG / Lab / Microbiology Data Laboratory: Laboratory Results - last 24 hr 11/11/21 11:14: POC Glucose 155 H D/C Instructions Discharge Diet: No restrictions Discharge Activity: Return to Normal Activity Weight Bearing Status: Weight bearing as tolerated Additional Instructions: Discharge to inpatient hospice facility for shortness of breath, anxiety, restless from acute respiratory failure with hypoxia from covid19. Resident DNRCC. Meaningful Use Info Meaningful Use Diagnoses (Choose all that apply): None applicable Discharge Plan Admission Admit Date/Time: 11/11/21 09:12 Primary Reason for Your Visit: Debility. Attending Provider: Milton Weiner Chi Primary Care Provider: Milton Weiner Chi Instructions Additional Instructions / Restrictions: Discharge to inpatient hospice facility for shortness of breath, anxiety, restless from acute respiratory failure with hypoxia from covid19. Resident DNRCC. Discharge Orders/Prescriptions Prescriptions: Discontinued famotidine 20 mg Tablet 20 mg PO BID RF: 0 ferrous sulfate 325 mg (65 mg iron) Tablet 325 mg PO BID RF: 0 enoxaparin 40 mg/0.4 mL Syringe 40 mg SUBCUT DAILY RF: 0 insulin lispro 100 unit/mL Insulin Pen See Protocol unit SUBCUT TID RF: 0 insulin glargine 100 unit/mL (3 mL) Insulin Pen 20 unit SUBCUT DAILY RF: 0 nystatin 100,000 unit/mL Suspension 5 ml PO Q6H RF: 0 acetaminophen 325 mg Tablet 650 mg PO Q4H PRN (Reason: Pain (Scale Score 1-3)) RF: 0 prednisone 10 mg Tablet See Taper mg PO DAILY RF: 0 ipratropium-albuterol 0.5 mg-3 mg(2.5 mg base)/3 mL Solution For Nebulization 3 ml INHALATION Q2H PRN (Reason: SOB) RF: 0 Vitamin C Plus Zinc 200-100 mg Tablet 1 tab PO DAILY RF: 0 alprazolam 0.25 mg Tablet 0.25 mg PO Q6H PRN PRN (Reason: Anxiety) RF: 0 lisinopril 10 mg Tablet 10 mg PO DAILY RF: 0 urea [Urea 40] 40 % Lotion 1 applic TOPICAL TID RF: 0 cholecalciferol (vitamin D3) [Vitamin D3] 50 mcg (2,000 unit) Tablet 50 mcg PO DAILY RF: 0 Referrals / Follow Up: Milton Weiner Chi, MD [Primary Care Provider] - Disposition Disposition (needs filled in before D/C Order can be placed): Hospice in Medical Facility
[2021-11-11 15:56] VITALS: RESP 24; O2SAT 95
[2021-11-11 16:00] VITALS: BP 120/71; PULSE 76; RESP 26; TEMP 36.5; O2SAT 92
--- NOTE | 2021-11-11 16:46 | NURSING ---
Irais Ennis agreed on IPH d/t Acute Respiratory Failure, pt unable to maintain above 90% on 15 L Hi flow spo2 72-88, NBR applied with hi flow, spo2 90-92%. Dr Weiner signed DNRCC then forwarded it to Norberto COLES per her request, Report called to [facility], transportation arrived for p/u @ 1700, pt sating @ 92% 15L NRB.
[2021-11-11 16:51] LABS: Bedside Glucose 167 mg/dL (70-110)
== END 2021-11-11 16:45 | disposition hospice, inpatient (51) | DRG 189 ==
PROVIDERS: Admitting Provider Family Medicine Geriatric Medicine; PCP Family Medicine Geriatric Medicine; Visit Provider Family Medicine Geriatric Medicine
DX: J96.01 Acute respiratory failure with hypoxia (principal); U09.9 Post COVID-19 condition, unspecified; K21.9 Gastro-esophageal reflux disease without esophagitis; D50.9 Iron deficiency anemia, unspecified; E11.9 Type 2 diabetes mellitus without complications; F41.9 Anxiety disorder, unspecified; I10 Essential (primary) hypertension; F02.80 Dementia in other diseases classified elsewhere, unspecified severity, without behavioral disturbance, psychotic disturbance, mood disturbance, and anxiety; G30.9 Alzheimer's disease, unspecified; B37.9 Candidiasis, unspecified; Z28.3 Underimmunization status; Z87.01 Personal history of pneumonia (recurrent); Z79.899 Other long term (current) drug therapy; Z79.4 Long term (current) use of insulin
CPT/HCPCS: 82962; 92523; 92526; 92610; 97802